=== PATIENT | female | born 1945 | race Caucasian/White ===

== ENCOUNTER 2017-04-25 14:05 | Inpatient (IN) | payer MEDICARE, MEDICAID, OTHER ==
[~2017-04-25] VITALS: Ht 160 cm; Wt 55.1 kg
[~2017-04-25 14:05] MED LIST: ALBUAER3 INH; CITA40TA4 PO; DEXT1TAB PO; HYDR-3583 PO; HYDR12.57 PO; LORA0.5T PO; OMEP20TA93 PO; REST30CA PO; THEO300T12 PO; TIZA2CAP3 PO; TRAZ100T4 PO
[2017-04-25] MEDS ORDERED: SODIUM CHLOR 0.9% 1000 ML INJ 1,000 ML IV SCH (14:19)
--- NOTE | 2017-04-25 14:24 | PD ---
HPI Chief Complaint: Psychiatric Symptoms Time Seen by Provider: 14:11 Travel History International Travel<30 days: No Contact w/Intl Traveler<30days: No History of Present Illness HPI 71-year-old female brought in by [facility] under the Diaz act for reported suicidal ideation. Patient is visibly intoxicated, and smells strongly of alcohol. Patient has history of asthma, chronic arthritis, and COPD. Patient is complaining of anxiety and nausea. Patient takes theophylline for her asthma. She states she may be due for a breathing treatment. She denies fever, chills, or other symptoms. She has no complaints of pain. She is allergic to ampicillin, doxycycline, minocycline, propoxyphene, and tigecycline. PFSH Past Medical History Asthma: Yes Bipolar Disorder: Yes Anxiety: Yes Depression: Yes Heart Rhythm Problems: No Cardiovascular Problems: No High Cholesterol: Yes Chest Pain: No Congestive Heart Failure: No COPD: No Cerebrovascular Accident: No Diabetes: No Diminished Hearing: No Gastrointestinal Disorders: Yes (CROHN'S) Genitourinary: No Headaches: No Hypertension: No Implanted Vascular Access Dvce: No Insomnia: Yes Musculoskeletal: Yes (DJD) Neurologic: No Psychiatric: Yes Reproductive: No Respiratory: No Immunizations Current: Yes Migraines: No Myocardial Infarction: No Sleep Apnea: No Menopausal: Yes : 3 Para: 3 Past Surgical History Abdominal Surgery: Yes Body Medical Devices: R LEG WITH TITANIUM ZAY Cardiac Surgery: No Endocrine Surgery: No Eye Surgery: No Genitourinary Surgery: No Joint Replacement: Yes (B/L HIP) Neurologic Surgery: No Oral Surgery: No Thoracic Surgery: No Tonsillectomy: Yes Other Surgery: Yes (r&l legs) Social History Alcohol Use: Yes Tobacco Use: Yes Substance Use: Yes (CHRONIC ALCOHOL ABUSE) Allergies-Medications (Allergen,Severity, Reaction): Coded Allergies: ampicillin (Unverified Allergy, Severe, 04/25/17) doxycycline (Unverified Allergy, Severe, UPSET STOMACH, 04/25/17) minocycline (Unverified Allergy, Severe, UPSET STOMACH, 04/25/17) propoxyphene (Unverified Allergy, Severe, Itching, 04/25/17) tigecycline (Unverified Allergy, Severe, UPSET STOMACH, 04/25/17) Reported Meds & Prescriptions Reported Meds & Active Scripts Active Reported Vistaril (Hydroxyzine Pamoate) 50 Mg Cap 50 Mg PO TID Potassium Chloride ER (Potassium Chloride) 20 Meq Tab 20 Meq PO DAILY Lasix (Furosemide) 20 Mg Tab 20 Mg PO DAILY Trazodone (Trazodone HCl) 100 Mg Tablet 100 Mg PO HS Lorazepam 0.5 Mg Tab 0.5 Mg PO Q4H PRN Hydrocodone-Acetaminophen 10-325 mg Tab 1 Tab PO Q8HR PRN Restoril (Temazepam) 30 Mg Cap 30 Mg PO HS PRN Proair Hfa 8.5 GM Inh (Albuterol Sulfate) 90 Mcg/Act Aer 2 Puff INH Q4-6H PRN 108 mcg/actuation Theophylline ER 12 HR (Theophylline) 300 Mg Tab 300 Mg PO BID Omeprazole 20 Mg Tab 20 Mg PO BID Citalopram (Citalopram Hydrobromide) 40 Mg Tab 40 Mg PO DAILY Review of Systems ROS Limitations: Intoxication Except as stated in HPI: all other systems reviewed are Neg General / Constitutional: No: Fever Eyes: No: Visual changes HENT: No: Headaches Cardiovascular: No: Chest Pain or Discomfort Respiratory: No: Shortness of Breath Gastrointestinal: No: Abdominal Pain Genitourinary: No: Dysuria Musculoskeletal: No: Pain Skin: No Rash Neurologic: No: Weakness Psychiatric: No: Depression Endocrine: No: Polydipsia Hematologic/Lymphatic: No: Easy Bruising Physical Exam Exam Limitations: Intoxication Narrative GENERAL: Patient visibly intoxicated and in no acute distress. SKIN: Warm and dry. Normal color. Normal turgor. No signs of trauma. HEAD: Atraumatic. Normocephalic. EYES: Pupils equal and round. No scleral icterus. No injection or drainage. ENT: No nasal bleeding or discharge. Mucous membranes pink and moist. NECK: Trachea midline. No JVD. CARDIOVASCULAR: Regular rate and rhythm. RESPIRATORY: No accessory muscle use. Diffuse wheezes to auscultation. No rhonchi or rales. Breath sounds equal bilaterally. GASTROINTESTINAL: Abdomen soft, non-tender, nondistended. Hepatic and splenic margins not palpable. MUSCULOSKELETAL: Extremities without clubbing, cyanosis, or edema. No obvious deformities. NEUROLOGICAL: Awake and alert. No obvious cranial nerve deficits. Motor grossly within normal limits. Five out of 5 muscle strength in the arms and legs. Normal speech. PSYCHIATRIC: Appropriate mood and affect; insight and judgment normal. Data Data Last Documented VS Vital Signs Date Time Temp Pulse Resp B/P (MAP) Pulse Ox O2 Delivery O2 Flow Rate FiO2 04/25/17 16:30 75 16 111/67 (82) 98 Room Air 04/25/17 14:38 98.8 Orders Orders Complete Blood Count With Diff (04/25/17 14:19) Comprehensive Metabolic Panel (04/25/17 14:19) Thyroid Stimulating Hormone (04/25/17 14:19) Urinalysis - C+S If Indicated (04/25/17 14:19) Cath For Specimen (04/25/17 14:19) Psych Screen (04/25/17 14:19) Drug Screen, Random Urine (04/25/17 14:19) Alcohol (Ethanol) (04/25/17 14:19) Iv Access Insert/Monitor (04/25/17 14:19) Ecg Monitoring (04/25/17 14:19) Oximetry (04/25/17 14:19) Ondansetron Inj (Zofran Inj) (04/25/17 14:30) Sodium Chlor 0.9% 1000 Ml Inj (Ns 1000 M (04/25/17 14:19) Thiamine Inj (Thiamine Inj) (04/25/17 14:30) Chest, Single Ap (04/25/17 14:33) Albuterol-Ipratropium Neb (Duoneb Neb) (04/25/17 14:45) Lorazepam Inj (Ativan Inj) (04/25/17 14:45) Azithromycin (Zithromax) (04/25/17 15:15) Ceftriaxone Inj (Rocephin Inj) (04/25/17 15:15) Prednisone (Deltasone) (04/25/17 15:30) Urine Culture (04/25/17 15:10) Potassium Chlor 20 Meq Premix (Kcl 20 Me (04/25/17 16:15) Potassium Chloride (Kcl) (04/25/17 16:15) Potassium Chlor 20 Meq Premix (Kcl 20 Me (04/25/17 16:45) Potassium Chloride (Kcl) (04/25/17 16:45) Lorazepam Inj (Ativan Inj) (04/25/17 18:30) Ondansetron Inj (Zofran Inj) (04/25/17 18:30) Admit Order (Ed Use Only) (04/25/17 18:33) Citalopram (Celexa) (04/26/17 09:00) Theophylline Er 12 Hr (Theochron) (04/25/17 21:00) (Nf) Trazodone (04/25/17 21:00) Labs Laboratory Tests Test 04/25/17 15:00 04/25/17 15:10 White Blood Count 6.4 TH/MM3 Red Blood Count 4.48 MIL/MM3 Hemoglobin 14.2 GM/DL Hematocrit 41.3 % Mean Corpuscular Volume 92.2 FL Mean Corpuscular Hemoglobin 31.7 PG Mean Corpuscular Hemoglobin Concent 34.4 % Red Cell Distribution Width 14.7 % Platelet Count 292 TH/MM3 Mean Platelet Volume 7.9 FL Neutrophils (%) (Auto) 68.4 % Lymphocytes (%) (Auto) 19.5 % Monocytes (%) (Auto) 10.0 % Eosinophils (%) (Auto) 0.9 % Basophils (%) (Auto) 1.2 % Neutrophils # (Auto) 4.4 TH/MM3 Lymphocytes # (Auto) 1.2 TH/MM3 Monocytes # (Auto) 0.6 TH/MM3 Eosinophils # (Auto) 0.1 TH/MM3 Basophils # (Auto) 0.1 TH/MM3 CBC Comment DIFF FINAL Differential Comment Blood Urea Nitrogen 8 MG/DL Creatinine 0.63 MG/DL Random Glucose 81 MG/DL Total Protein 6.7 GM/DL Albumin 3.9 GM/DL Calcium Level 8.6 MG/DL Alkaline Phosphatase 94 U/L Aspartate Amino Transf (AST/SGOT) 68 U/L Alanine Aminotransferase (ALT/SGPT) 52 U/L Total Bilirubin 0.6 MG/DL Sodium Level 136 MEQ/L Potassium Level 2.8 MEQ/L Chloride Level 96 MEQ/L Carbon Dioxide Level 29.5 MEQ/L Anion Gap 11 MEQ/L Estimat Glomerular Filtration Rate 94 ML/MIN Thyroid Stimulating Hormone 3rd Gen 0.482 uIU/ML Ethyl Alcohol Level 84 MG/DL Urine Color YELLOW Urine Turbidity HAZY Urine pH 7.0 Urine Specific [place] 1.007 Urine Protein NEG mg/dL Urine Glucose (UA) NEG mg/dL Urine Ketones NEG mg/dL Urine Occult Blood NEG Urine Nitrite POS Urine Bilirubin NEG Urine Urobilinogen LESS THAN 2.0 MG/DL Urine Leukocyte Esterase LARGE Urine RBC 1 /hpf Urine WBC 65 /hpf Urine WBC Clumps FEW Urine Transitional Epithelial Cells <1 /hpf Urine Bacteria FEW /hpf Microscopic Urinalysis Comment CATH-CULTURE IND Urine Opiates Screen NEG Urine Barbiturates Screen NEG Urine Amphetamines Screen NEG Urine Benzodiazepines Screen NEG Urine Cocaine Screen NEG Urine Cannabinoids Screen NEG MDM Medical Decision Making Medical Screen Exam Complete: Yes Emergency Medical Condition: Yes Medical Record Reviewed: Yes Differential Diagnosis Alcoholic intoxication. Suicidal ideation. Diaz act Narrative Course Patient appears medically stable at time of exam Labs ordered including CBC, CMP, urinalysis, urine drug screen, and serum alcohol. Chest x-ray is ordered. IV access is obtained the patient is given 4 mg Zofran IV as well as 100 mg thiamine IV, as well as 1000 mL of normal saline bolus. Patient is given 0.5 mg lorazepam IV, and DuoNeb 1. Chest x-ray suggests right lower lobe pneumonia. Patient is given 500 mg azithromycin p.o. as well as 1000 mg Rocephin IV. CBC is unremarkable. Urinalysis has positive nitrites, large leukocyte esterase, 65 WBCs per high- power field, a few white blood cell clumps per high-power field, and few bacteria per high-power field. Urine culture is placed. CMP significant with sodium 136, potassium 2.8, chloride is 96. BUN/creatinine are normal. TSH is normal. Patient is given 40 mEq KCl IV as well as 40 mEq KCl p.o. Urine toxicology is normal. With a full alcohol of 84. Calls placed to the hospitalist for admission. Patient was discussed with Dr. Alfaro, and due to the patient's illnesses being able to be treated with oral antibiotics and potassium supplementation, she felt she could be admitted to the psych medical floor if felt warranted by psych. Psych screen is ordered. Psych screen was performed by psychiatric nurse, and patient was discussed with the psychiatrist who felt the patient warranted inpatient admission. The patient will be admitted to the med psych floor, and followed by the hospitalist team for her medical issues. Diagnosis Primary Impression: Right lower lobe pneumonia Qualified Codes: J18.1 - Lobar pneumonia, unspecified organism Additional Impressions: UTI (urinary tract infection) Qualified Codes: N30.00 - Acute cystitis without hematuria Depression with suicidal ideation Admitting Information Admitting Physician Requests: Admit Condition: Stable Trav Karimi F. PA Apr 25, 2017 14:24
[2017-04-25] MEDS ORDERED: THIAMINE INJ 100 MG in SODIUM CHLORIDE 0.9% INJ 100 ML IV ONE (14:30)
[2017-04-25] MEDS ORDERED: ONDANSETRON HCL 4 MG/2 ML VIAL IVP ONE (14:30)
[2017-04-25 14:38] VITALS: BP 109/61; PULSE 82; RESP 16; TEMP 98.8; O2SAT 95
[2017-04-25] MEDS ORDERED: TRAZ100T10 PO (14:41)
[2017-04-25] MEDS ORDERED: RESP: ALBUTEROL 2.5 MG/IPRATROPIUM 0.5 MG NEB (SCH) INH ONE (14:45)
[2017-04-25] MEDS ORDERED: LORazepam 2 MG/ML VIAL IV PUSH ONE ×2 (14:45→18:30)
--- NOTE | 2017-04-25 15:04 | RADRPT ---
EXAM DATE/TIME: 04/25/2017 14:39 [place] COMPARISON: CHEST SINGLE AP, February 25, 2016, 14:58. INDICATIONS : Coughing, short of breath MEDICAL HISTORY : substance abuse, bi-polar disorder,asthma SURGICAL HISTORY : Tonsillectomy. multiple surgeries to hips and lower extremities ENCOUNTER: Initial ACUITY: 1 day PAIN SCORE: Non-responsive. LOCATION: Bilateral chest FINDINGS: A single view of the chest demonstrates consolidation in the right lower lobe. Left lung clear. Heart normal in size. Osseous structures are intact. Levoscoliosis lower thoracic spine. Erosion of right shoulder joint, unchanged. CONCLUSION: Right lower lobe pneumonia. Treatment and followup to resolution. Larry Watson MD on April 25, 2017 at 15:02 Board Certified Radiologist. This report was verified electronically.
[2017-04-25] MEDS ORDERED: FURO1TAB62 PO (15:07)
[2017-04-25] MEDS ORDERED: VIST50CA PO (15:07)
[2017-04-25] MEDS ORDERED: POTA-163 PO (15:07)
[2017-04-25] MEDS ORDERED: cefTRIAXone INJ 1,000 MG in SODIUM CHLORIDE 0.9% INJ 100 ML IV ONE (15:15)
[2017-04-25 15:30] LABS: AUTOMATED NEUTROPHIL # 4.4 TH/MM3 (1.8-7.7); BASOPHIL # 0.1 TH/MM3 (0-0.2); BASOPHIL % 1.2 % (0.0-2.0); EOSINOPHIL # 0.1 TH/MM3 (0-0.4); EOSINOPHIL % 0.9 % (0.0-4.0); HEMATOCRIT 41.3 % (35.0-46.0); HEMOGLOBIN 14.2 GM/DL (11.6-15.3); LYMPH % 19.5 % (9.0-44.0); LYMPHOCYTE # 1.2 TH/MM3 (1.0-4.8); MEAN CELL VOLUME 92.2 FL (80.0-100.0); MEAN CORPUSCULAR HEMOGLOBIN 31.7 PG (27.0-34.0); MEAN CORPUSCULAR HGB CONC 34.4 % (32.0-36.0); MEAN PLATELET VOLUME 7.9 FL (7.0-11.0); MONOCYTE # 0.6 TH/MM3 (0-0.9); NEUT % 68.4 % (16.0-70.0); PLATELET COUNT 292 TH/MM3 (150-450); RED BLOOD COUNT 4.48 MIL/MM3 (4.00-5.30); RED CELL DISTRIBUTION WIDTH 14.7 % (11.6-17.2); WHITE BLOOD COUNT 6.4 TH/MM3 (4.0-11.0)
[2017-04-25 15:49] LABS: BACTERIA, URINE FEW /hpf; BILIRUBIN, URINE NEG (NEG); BLOOD, URINE NEG (NEG); GLUCOSE,URINE NEG (NEG); KETONE, URINE NEG (NEG); NITRITE,URINE POS (NEG); TRANSITIONAL EPI CELLS, URINE <1 /hpf; URINE COLOR YELLOW (YELLW/STRAW); URINE LEUKOCYTE ESTERASE LARGE (NEG); WHITE BLOOD CELL CLUMPS FEW
[2017-04-25 15:59] LABS: ALBUMIN 3.9 GM/DL (3.4-5.0); ALKALINE PHOSPHATASE 94 U/L (45-117); ALT (GPT) 52 U/L (10-53); AST (GOT) 68 U/L (15-37); BICARBONATE 29.5 MEQ/L (21.0-32.0); BLOOD UREA NITROGEN 8 MG/DL (7-18); CALCIUM 8.6 MG/DL (8.5-10.1); CHLORIDE 96 MEQ/L (98-107); CREATININE 0.63 MG/DL (0.50-1.00); GLOMERULAR FILTRATION RATE 94 ML/MIN (>89); GLUCOSE,RANDOM 81 MG/DL (74-106); SODIUM (NA) 136 MEQ/L (136-145); TOTAL BILIRUBIN ADULT 0.6 MG/DL (0.2-1.0); TOTAL PROTEIN 6.7 GM/DL (6.4-8.2)
[2017-04-25] MEDS: predniSONE 20 MG TAB PO SCH (15:59)
[2017-04-25] MEDS: AZITHROMYCIN 250 MG TAB PO SCH (15:59)
[2017-04-25] MEDS ORDERED: POTASSIUM CHLORIDE 20 MEQ CONTROLLED RELEASE TAB PO ONE ×2 (16:15→16:45)
[2017-04-25] MEDS ORDERED: POTASSIUM CHLOR 20 MEQ PREMIX 100 ML IV ONE (16:15)
[2017-04-25 16:30] VITALS: BP 111/67; PULSE 75; RESP 16; O2SAT 98
[2017-04-25] MEDS ORDERED: ONDANSETRON HCL 4 MG/2 ML VIAL IV PUSH ONE (18:30)
[2017-04-25 18:43] VITALS: BP 102/55; PULSE 81; RESP 16; O2SAT 98
[2017-04-25] MEDS ORDERED: LORazepam 2 MG/ML VIAL IM PRN ×2 (18:45)
[2017-04-25] MEDS: POTASSIUM CHLOR 20 MEQ PREMIX 100 ML IV SCH ×2 (18:45→19:34)
[2017-04-25] MEDS ORDERED: MAGNESIUM HYDROXIDE SUSP 30 ML CUP PO PRN (18:45)
[2017-04-25] MEDS ORDERED: LORazepam 1 MG TAB PO PRN (18:45)
[2017-04-25] MEDS: traZODone HCL 100 MG TAB PO SCH (21:00)
[2017-04-25] MEDS: THEOPHYLLINE ER 12 HR 300 MG TABCR PO SCH (21:00)
[2017-04-25 21:47] VITALS: BP 102/59; PULSE 88; RESP 15; TEMP 99.4
[2017-04-25] MEDS: ACETAMINOPHEN 325 MG TAB PO PRN (21:50)
[2017-04-25] MEDS: LORazepam 0.5 MG TAB PO PRN (21:51)
[2017-04-26] MEDS: ACETAMINOPHEN 325 MG TAB PO PRN ×3 (04:37→19:00)
[2017-04-26 04:50] VITALS: BP 122/58; PULSE 87; RESP 20; TEMP 98.2
[2017-04-26] MEDS ORDERED: NICOTINE 21 MG/24 HR PATCH T-DERMAL SCH (09:00)
[2017-04-26 09:54] LABS: AUTOMATED NEUTROPHIL # 7.3 TH/MM3 (1.8-7.7); BASOPHIL # 0.1 TH/MM3 (0-0.2); BASOPHIL % 1.1 % (0.0-2.0); EOSINOPHIL % 0.3 % (0.0-4.0); HEMATOCRIT 40.8 % (35.0-46.0); HEMOGLOBIN 13.9 GM/DL (11.6-15.3); LYMPH % 11.6 % (9.0-44.0); MEAN CELL VOLUME 93.2 FL (80.0-100.0); MEAN CORPUSCULAR HEMOGLOBIN 31.8 PG (27.0-34.0); MEAN CORPUSCULAR HGB CONC 34.2 % (32.0-36.0); MEAN PLATELET VOLUME 7.5 FL (7.0-11.0); MONO % 6.2 % (0.0-8.0); MONOCYTE # 0.6 TH/MM3 (0-0.9); NEUT % 80.8 % (16.0-70.0); PLATELET COUNT 301 TH/MM3 (150-450); RED BLOOD COUNT 4.37 MIL/MM3 (4.00-5.30); WHITE BLOOD COUNT 9.1 TH/MM3 (4.0-11.0)
[2017-04-26] MEDS: predniSONE 20 MG TAB PO SCH (10:09)
[2017-04-26] MEDS: CITALOPRAM HYDROBROMIDE 40 MG TAB PO SCH ×2 (10:10→12:00)
[2017-04-26] MEDS: THEOPHYLLINE ER 12 HR 300 MG TABCR PO SCH ×2 (10:10→21:53)
[2017-04-26] MEDS: AZITHROMYCIN 250 MG TAB PO SCH (10:10)
[2017-04-26] MEDS: ALUMINUM/MAGNESIUM/SIMETH 30 ML CUP PO PRN ×2 (10:11→21:55)
[2017-04-26 10:21] LABS: ALBUMIN 3.5 GM/DL (3.4-5.0); AST (GOT) 41 U/L (15-37); BICARBONATE 30.8 MEQ/L (21.0-32.0); BLOOD UREA NITROGEN 10 MG/DL (7-18); CALCIUM 9.3 MG/DL (8.5-10.1); CHLORIDE 103 MEQ/L (98-107); CREATININE 0.78 MG/DL (0.50-1.00); GLOMERULAR FILTRATION RATE 73 ML/MIN (>89); GLUCOSE,RANDOM 127 MG/DL (74-106); MAGNESIUM 2.2 MG/DL (1.5-2.5); SODIUM (NA) 140 MEQ/L (136-145)
[2017-04-26 10:22] LABS: CHOLESTEROL 187 MG/DL (120-200)
[2017-04-26 10:27] LABS: ALKALINE PHOSPHATASE 93 U/L (45-117); ALT (GPT) 40 U/L (10-53); CHOLESTEROL/ HDL RATIO 1.64 RATIO; HDL CHOLESTEROL 113.7 MG/DL (40.0-60.0); LDL CHOLESTEROL 64 MG/DL (0-99); TOTAL BILIRUBIN ADULT 0.5 MG/DL (0.2-1.0); TOTAL PROTEIN 6.2 GM/DL (6.4-8.2); TRIGLYCERIDES 47 MG/DL (42-150)
[2017-04-26] MEDS: methylPREDNISolone SOD SUCC 125 MG/2 ML VIAL IV PUSH SCH ×2 (12:16→23:04)
[2017-04-26] MEDS: LEVOFLOXACIN 750 MG PREMIX INJ 150 ML IV SCH (12:17)
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
--- NOTE | 2017-04-26 14:03 | PD.CONS ---
[facility] Consult Requested By Reason for Consult Pneumonia, UTI, COPD Primary Care Physician Unknown Diagnoses: Review of Systems Constitutional: COMPLAINS OF: Fatigue, Fever, Chills, DENIES: Diaphoretic episodes, Weight gain, Weight loss Eyes: DENIES: Blurred vision, Diplopia, Eye inflammation, Eye pain, Vision loss , Photosensitivity Respiratory: COMPLAINS OF: Cough, Wheezing, Sputum production, Shortness of breath Cardiovascular: DENIES: Chest pain, Palpitations, Syncope Gastrointestinal: DENIES: Abdominal pain, Black stools, Bloody stools, Constipation, Diarrhea, Nausea, Vomiting Musculoskeletal: DENIES: Joint pain, Muscle aches, Stiffness, Joint Swelling Integumentary: DENIES: Abnormal pigmentation, Pruritus, Rash Neurologic: DENIES: Abnormal gait, Headache, Localized weakness Psychiatric: COMPLAINS OF: Anxiety, Depression, Suicidal Ideation, DENIES: Confusion, Hallucinations Past Family Social History Allergies: Coded Allergies: ampicillin (Unverified Allergy, Severe, 04/25/17) doxycycline (Unverified Allergy, Severe, UPSET STOMACH, 04/25/17) minocycline (Unverified Allergy, Severe, UPSET STOMACH, 04/25/17) propoxyphene (Unverified Allergy, Severe, Itching, 04/25/17) tigecycline (Unverified Allergy, Severe, UPSET STOMACH, 04/25/17) Past Medical History COPD CHF Osteoarthritis Depression Past Surgical History 2 right hip surgeries Left ankle repair Family History Cancer Type 2 diabetes Hypertension Social History Patient smokes less than one half pack of cigarettes per day Recent increase in alcohol use, up to 8 drinks daily Physical Exam Vital Signs Vital Signs Date Time Temp Pulse Resp B/P (MAP) Pulse Ox O2 Delivery O2 Flow Rate FiO2 04/26/17 04:50 98.2 87 20 122/58 (79) 04/25/17 21:47 99.4 88 15 102/59 (73) 04/25/17 21:16 04/25/17 18:43 81 16 102/55 (71) 98 Room Air 04/25/17 16:30 75 16 111/67 (82) 98 Room Air 04/25/17 14:38 98.8 82 16 109/61 (77) 95 Physical Exam GENERAL: This is a thin, weak, sad appearing patient, in no apparent distress. SKIN: No rashes, ecchymoses or lesions. Cool and dry. HEAD: Atraumatic. Normocephalic. No temporal or scalp tenderness. EYES: Pupils equal round and reactive. Extraocular motions intact. No scleral icterus. No injection or drainage. ENT: Nose without bleeding, purulent drainage or septal hematoma. Throat without erythema, tonsillar hypertrophy or exudate. Uvula midline. Airway patent. NECK: Trachea midline. No JVD or lymphadenopathy. Supple, nontender, no meningeal signs. CARDIOVASCULAR: Regular rate and rhythm without murmurs, gallops, or rubs. RESPIRATORY: Simba congestion and scattered wheezing throughout. Rhonchi present with large amount of congestion. (COPD exacerbation) GASTROINTESTINAL: Abdomen soft, non-tender, nondistended. No hepato-splenomegaly , or palpable masses. No guarding. MUSCULOSKELETAL: Extremities without clubbing, cyanosis, or edema. No joint tenderness, effusion, or edema noted. No calf tenderness. Negative Homans sign bilaterally. NEUROLOGICAL: Awake and alert. Cranial nerves II through XII intact. Motor and sensory grossly within normal limits. Five out of 5 muscle strength in all muscle groups. Normal speech. Laboratory Laboratory Tests Test 04/25/17 15:00 04/25/17 15:10 04/26/17 09:41 White Blood Count 6.4 9.1 Red Blood Count 4.48 4.37 Hemoglobin 14.2 13.9 Hematocrit 41.3 40.8 Mean Corpuscular Volume 92.2 93.2 Mean Corpuscular Hemoglobin 31.7 31.8 Mean Corpuscular Hemoglobin Concent 34.4 34.2 Red Cell Distribution Width 14.7 15.0 Platelet Count 292 301 Mean Platelet Volume 7.9 7.5 Neutrophils (%) (Auto) 68.4 80.8 Lymphocytes (%) (Auto) 19.5 11.6 Monocytes (%) (Auto) 10.0 6.2 Eosinophils (%) (Auto) 0.9 0.3 Basophils (%) (Auto) 1.2 1.1 Neutrophils # (Auto) 4.4 7.3 Lymphocytes # (Auto) 1.2 1.0 Monocytes # (Auto) 0.6 0.6 Eosinophils # (Auto) 0.1 0.0 Basophils # (Auto) 0.1 0.1 CBC Comment DIFF FINAL DIFF FINAL Differential Comment Blood Urea Nitrogen 8 10 Creatinine 0.63 0.78 Random Glucose 81 127 Total Protein 6.7 6.2 Albumin 3.9 3.5 Calcium Level 8.6 9.3 Alkaline Phosphatase 94 93 Aspartate Amino Transf (AST/SGOT) 68 41 Alanine Aminotransferase (ALT/SGPT) 52 40 Total Bilirubin 0.6 0.5 Sodium Level 136 140 Potassium Level 2.8 3.4 Chloride Level 96 103 Carbon Dioxide Level 29.5 30.8 Anion Gap 11 6 Estimat Glomerular Filtration Rate 94 73 Thyroid Stimulating Hormone 3rd Gen 0.482 Ethyl Alcohol Level 84 Urine Color YELLOW Urine Turbidity HAZY Urine pH 7.0 Urine Specific Willard 1.007 Urine Protein NEG Urine Glucose (UA) NEG Urine Ketones NEG Urine Occult Blood NEG Urine Nitrite POS Urine Bilirubin NEG Urine Urobilinogen LESS THAN 2.0 Urine Leukocyte Esterase LARGE Urine RBC 1 Urine WBC 65 Urine WBC Clumps FEW Urine Transitional Epithelial Cells <1 Urine Bacteria FEW Microscopic Urinalysis Comment CATH-CULTURE IND Urine Opiates Screen NEG Urine Barbiturates Screen NEG Urine Amphetamines Screen NEG Urine Benzodiazepines Screen NEG Urine Cocaine Screen NEG Urine Cannabinoids Screen NEG Magnesium Level 2.2 Hemoglobin A1c 5.0 Triglycerides Level 47 Cholesterol Level 187 LDL Cholesterol 64 HDL Cholesterol 113.7 Cholesterol/HDL Ratio 1.64 Date/Time Source Procedure Growth Status 04/25/17 15:10 Urine Catheterized Urine Urine Culture - Preliminary Gram Negative Aaron Resulted Result Diagram: 04/26/1794004/26/17940 Assessment and Plan Problem List: (1) Depression with suicidal ideation ICD Code: F32.9 - Major depressive disorder, single episode, unspecified; R45.851 - Suicidal ideations Status: Acute Assessment and Plan Depression with suicidal ideation Treatment per psychiatry Pneumonia with COPD exacerbation Patient states she has had good success with Levaquin on 6 previous treatments for pneumonia, all within 4 years IV Solu-Medrol 60 mg twice daily Schedule DuoNeb treatments Urinary tract infection Cross coverage with Levaquin h/o congestive heart failure No evidence of edema currently Will monitor DVT prophylaxis Andres Mosquera MD Apr 26, 2017 14:03
[2017-04-26] MEDS: traMADol HCL 50 MG TAB PO PRN ×2 (14:26→21:52)
[2017-04-26] MEDS: ENOXAPARIN SODIUM 40 MG/0.4 ML SYRINGE SQ SCH (14:26)
[2017-04-26] MEDS: hydrOXYzine HCL 25 MG TAB PO PRN ×2 (14:26→21:51)
[2017-04-26] MEDS: NICOTINE 7 MG/24 HR PATCH T-DERMAL SCH (14:34)
[2017-04-26] MEDS ORDERED: FLUMAZENIL 0.5 MG/5 ML VIAL IV PUSH PRN (16:00)
[2017-04-26] MEDS ORDERED: LORazepam 2 MG/ML VIAL IV PUSH PRN ×4 (16:00)
[2017-04-26] MEDS ORDERED: LORazepam 2 MG TAB PO PRN (16:00)
[2017-04-26] MEDS: LORazepam 1 MG TAB PO PRN (16:08)
[2017-04-26 18:00] VITALS: BP 109/59; PULSE 69; RESP 18; TEMP 98.5; O2SAT 97
[2017-04-26] MEDS: RESP: ALBUTEROL 2.5 MG/IPRATROPIUM 0.5 MG NEB (SCH) NEB (20:00)
[2017-04-26] MEDS ORDERED: REMOVE OLD PATCH T-DERMAL SCH (21:00)
[2017-04-26] MEDS ORDERED: REMOVE OLD NICODERM (NICOTINE) PATCH T-DERMAL SCH (21:00)
[2017-04-26] MEDS: traZODone HCL 100 MG TAB PO SCH (21:51)
[2017-04-27] MEDS: ACETAMINOPHEN 325 MG TAB PO PRN (01:39)
[2017-04-27] MEDS: ALUMINUM/MAGNESIUM/SIMETH 30 ML CUP PO PRN (05:44)
[2017-04-27] MEDS: traMADol HCL 50 MG TAB PO PRN (05:44)
[2017-04-27 06:00] VITALS: BP 124/76; PULSE 66; RESP 16; TEMP 98.8; O2SAT 94
[2017-04-27 07:38] VITALS: O2SAT 99
[2017-04-27] MEDS: RESP: ALBUTEROL 2.5 MG/IPRATROPIUM 0.5 MG NEB (SCH) NEB ×3 (07:38→20:00)
[2017-04-27] MEDS: THEOPHYLLINE ER 12 HR 300 MG TABCR PO SCH ×2 (08:57→21:20)
[2017-04-27] MEDS: CITALOPRAM HYDROBROMIDE 40 MG TAB PO SCH (08:58)
[2017-04-27] MEDS: methylPREDNISolone SOD SUCC 125 MG/2 ML VIAL IV PUSH SCH (08:59)
[2017-04-27] MEDS: predniSONE 20 MG TAB PO SCH (09:00)
[2017-04-27] MEDS: NICOTINE 7 MG/24 HR PATCH T-DERMAL SCH (09:07)
[2017-04-27] MEDS: IBUPROFEN 400 MG TAB PO SCH ×2 (10:00→17:55)
[2017-04-27] MEDS: LEVOFLOXACIN 750 MG PREMIX INJ 150 ML IV SCH (10:00)
[2017-04-27] MEDS: ACETAMINOPHEN/HYDROcodone 325 MG/5 MG TAB PO PRN ×2 (10:18→21:20)
--- NOTE | 2017-04-27 10:46 | HHI.PR ---
Subjective Remarks Patient states she feels a lot better and is breathing easier. Less coughing. She had some mild nausea and requested Zofran. She states that her pain is not quite controlled on tramadol and requests Lortab instead. Her pain is mostly pleuritic on the left side. Objective Vitals Vital Signs Date Time Temp Pulse Resp B/P (MAP) Pulse Ox O2 Delivery O2 Flow Rate FiO2 04/27/17 07:38 99 Nasal Cannula 2.00 04/27/17 06:00 98.8 66 16 124/76 (92) 94 04/26/17 22:26 21 04/26/17 18:00 98.5 69 18 109/59 (76) 97 I/O 04/26/17 04/26/17 04/26/17 04/27/17 04/27/17 04/27/17 07:00 15:00 23:00 07:00 15:00 23:00 Intake Total 600 ml 1200 ml 1080 ml 240 ml 240 ml Balance 600 ml 1200 ml 1080 ml 240 ml 240 ml Intake Oral 600 ml 1200 ml 1080 ml 240 ml 240 ml # Voids 2 1 1 # Bowel Movements 1 Result Diagram: 04/26/17 0941 04/26/17 0941 Objective Remarks GENERAL: Thin, weak appearing SKIN: Warm and dry. HEAD: Normocephalic. EYES: No scleral icterus. No injection or drainage. NECK: Supple, trachea midline. No JVD or lymphadenopathy. CARDIOVASCULAR: Regular rate and rhythm without murmurs, gallops, or rubs. RESPIRATORY: Crackles evident in the right base, congestion from yesterday 90% resolved, no more wheezing GASTROINTESTINAL: Abdomen soft, non-tender, nondistended. EXTREMITIES: No cyanosis, or edema. NEUROLOGICAL: Awake, alert, and oriented x 3. Non-focal. A/P Problem List: (1) Depression with suicidal ideation ICD Code: F32.9 - Major depressive disorder, single episode, unspecified; R45.851 - Suicidal ideations Status: Acute (2) UTI (urinary tract infection) ICD Code: N39.0 - Urinary tract infection, site not specified Status: Acute (3) Right lower lobe pneumonia ICD Code: J18.1 - Lobar pneumonia, unspecified organism Status: Acute Assessment and Plan Depression with suicidal ideation Treatment per psychiatry Pneumonia with COPD exacerbation Patient states she has had 6 episodes of pneumonia within 4 years Continue IV Solu-Medrol 60 mg twice daily Continue schedule DuoNeb treatments Continue IV Levaquin Lortab and Motrin for pleuritic pain Urinary tract infection Cross coverage with Levaquin Follow-up culture results h/o congestive heart failure No evidence of edema currently Will monitor DVT prophylaxis Lovenox Problem Qualifiers (1) UTI (urinary tract infection): Qualified Codes: N30.00 - Acute cystitis without hematuria (2) Right lower lobe pneumonia: Qualified Codes: J18.1 - Lobar pneumonia, unspecified organism Andres Jules MD Apr 27, 2017 10:46
[2017-04-27] MEDS: LORazepam 1 MG TAB PO PRN (13:45)
[2017-04-27] MEDS: ENOXAPARIN SODIUM 40 MG/0.4 ML SYRINGE SQ SCH (14:38)
--- NOTE | 2017-04-27 14:54 | HHI.PYPN ---
Subjective Remarks Patient is here for follow, chart reviewed. Patient found lying in hospital bed , cooperative. Patient states that he is feeling somewhat better although continued to report feeling depressed along with continue suicide ideations. Patient states that trazodone helped continues to have poor sleep. Patient denies any perceptual disturbances but is having some diarrhea and nausea that may be due to withdrawal from recent alcohol use. Patient also mentions that she had been seen by hospitalist and was told that she has "fluid in my lung". Review of Systems Except as stated in HPI: all other systems reviewed are Neg Mental Status Examination Appearance: Dirty, Disheveled Consciousness: Alert Orientation: Person, Place, Date/Time Speech: Unremarkable Language: Adequate Fund of Knowledge: Inadequate Attention and Concentration: Adequate Memory: Unremarkable Mood: Sad, Anxious Affect: Sad, Anxious Thought Process & Associations: Intact, Linear Thought Content: Appropriate Hallucination Type: None Delusion Type: None Suicidal Ideation: Yes Suicidal Plan: No Suicidal Intention: No Homicidal Ideation: No Homicidal Plan: No Homicidal Intention: No Insight: Fair Judgment: Impulsive Results Labs Date/Time Source Procedure Growth Status 04/25/17 15:10 Urine Catheterized Urine Urine Culture - Preliminary Escherichia Coli Multi-Drug Resistant Resulted Vitals/IOs Vital Signs Date Time Temp Pulse Resp B/P (MAP) Pulse Ox O2 Delivery O2 Flow Rate FiO2 04/27/17 07:38 99 Nasal Cannula 2.00 04/27/17 06:00 98.8 66 16 124/76 (92) 04/26/17 22:26 21 Intake and Output 04/27/17 04/27/17 04/28/17 08:00 16:00 00:00 Intake Total 240 ml 720 ml Balance 240 ml 720 ml Assessment & Plan Problem List: (1) Adjustment disorder with depressed mood ICD Codes: F43.21 - Adjustment disorder with depressed mood (2) Alcohol use disorder ICD Codes: F10.99 - Alcohol use, unspecified with unspecified alcohol-induced disorder Assessment & Plan Patient at this time continues to report feeling depressed although states feelings physically less anxious continues to have intermittent suicidal ideations. Patient to continue CIWA protocol as patient likely having symptoms of withdrawal. Continue to monitor mood and behavior. Continue current treatment this patient was recently restarted on medications. Discharge planning in progress Justification for Cont. Inpt. At risk for further decompensation if at lower level of care Discharge Planning To be determined Larry Ramos MD Apr 27, 2017 14:54
[2017-04-27 18:46] VITALS: BP 117/56; PULSE 67; RESP 16; TEMP 98.3
[2017-04-27] MEDS: traZODone HCL 100 MG TAB PO SCH (21:20)
[2017-04-27] MEDS: LORazepam 0.5 MG TAB PO PRN (21:20)
[2017-04-27] MEDS: hydrOXYzine HCL 25 MG TAB PO PRN (21:20)
[2017-04-27 22:15] VITALS: O2SAT 95
[2017-04-28] MEDS: IBUPROFEN 400 MG TAB PO SCH ×3 (03:18→17:32)
[2017-04-28] MEDS: hydrOXYzine HCL 25 MG TAB PO PRN ×4 (03:18→20:41)
[2017-04-28] MEDS: ACETAMINOPHEN/HYDROcodone 325 MG/5 MG TAB PO PRN ×5 (03:18→23:30)
[2017-04-28 06:17] VITALS: BP 128/73; PULSE 63; RESP 16; TEMP 98; O2SAT 99
[2017-04-28] MEDS: ONDANSETRON HCL 4 MG/2 ML VIAL IV PUSH PRN (06:39)
--- NOTE | 2017-04-28 08:14 | HHI.PYPN ---
Subjective Remarks Patient seen for follow, chart reviewed. Patient found lying hospital bed noted , cooperative. Patient states that she still continues to feel anxious with episodes of panic when thinking about returning back to being homeless. Patient states that she had been feeling "suicidal again" related to her psychosocial circumstances. Patient aware that treatment team is actively looking for safe disposition but is aware the patient will also require rehabilitation program for alcohol use which she is in agreement with. Patient continues to report feeling depressed, helpless and was continued suicidal ideations. Review of Systems Except as stated in HPI: all other systems reviewed are Neg Mental Status Examination Appearance: Dirty, Disheveled Consciousness: Alert Orientation: Person, Place, Date/Time Speech: Unremarkable Language: Adequate Fund of Knowledge: Inadequate Attention and Concentration: Adequate Memory: Unremarkable Mood: Sad, Anxious Affect: Sad, Anxious Thought Process & Associations: Intact, Linear Thought Content: Preoccupations (With her living situation) Hallucination Type: None Delusion Type: Paranoid Suicidal Ideation: Yes Suicidal Plan: No Suicidal Intention: No Homicidal Ideation: No Homicidal Plan: No Homicidal Intention: No Insight: Fair Judgment: Impulsive Results Labs Date/Time Source Procedure Growth Status 04/25/17 15:10 Urine Catheterized Urine Urine Culture - Final Escherichia Coli Multi-Drug Resistant Complete Vitals/IOs Vital Signs Date Time Temp Pulse Resp B/P (MAP) Pulse Ox O2 Delivery O2 Flow Rate FiO2 04/28/17 06:17 98.0 63 16 128/73 (91) 99 04/27/17 22:15 Nasal Cannula 2.00 04/26/17 22:26 21 Intake and Output 04/28/17 04/28/17 04/29/17 08:00 16:00 00:00 Intake Total 0 ml Balance 0 ml Assessment & Plan Problem List: (1) Adjustment disorder with depressed mood ICD Codes: F43.21 - Adjustment disorder with depressed mood (2) Alcohol use disorder ICD Codes: F10.99 - Alcohol use, unspecified with unspecified alcohol-induced disorder Assessment & Plan Patient this time continues to endorse feeling depressed along with episodes of anxiety and continued suicidal ideations. Patient continues to score on the CIWA requiring Ativan for current withdrawal symptoms. Patient's anxiety also may be related to her current withdrawal. We will continue with current treatment. Continue to monitor for withdrawal, continue CIWA protocol. Continue recommendations as per prior medical team. Discharge planning in progress. Justification for Cont. Inpt. At risk of further decompensation at lower level of care. Larry Ramos MD Apr 28, 2017 08:13
[2017-04-28] MEDS: RESP: ALBUTEROL 2.5 MG/IPRATROPIUM 0.5 MG NEB (SCH) NEB ×2 (08:24→14:18)
[2017-04-28] MEDS: predniSONE 50 MG TAB PO SCH (09:42)
[2017-04-28] MEDS: NICOTINE 7 MG/24 HR PATCH T-DERMAL SCH (09:43)
[2017-04-28] MEDS: THEOPHYLLINE ER 12 HR 300 MG TABCR PO SCH ×2 (09:43→20:41)
[2017-04-28] MEDS: CITALOPRAM HYDROBROMIDE 40 MG TAB PO SCH (09:43)
[2017-04-28] MEDS ORDERED: methylPREDNISolone SOD SUCC 40 MG/1 ML VIAL IV PUSH ONE (12:00)
[2017-04-28] MEDS: BUDESONIDE-FORMOTEROL 160/4.5 MCG INHALER INH SCH ×2 (13:14→20:41)
[2017-04-28] MEDS: LEVOFLOXACIN 750 MG PREMIX INJ 150 ML IV SCH (13:23)
--- NOTE | 2017-04-28 13:26 | HHI.PR ---
Subjective Remarks Patient was switched from IV Solu-Medrol to p.o. prednisone yesterday. She had some slight worsening of her shortness of breath. Denies any fevers. Objective Vitals Vital Signs Date Time Temp Pulse Resp B/P (MAP) Pulse Ox O2 Delivery O2 Flow Rate FiO2 04/28/17 08:24 Nasal Cannula 2.00 04/28/17 06:17 98.0 63 16 128/73 (91) 99 04/27/17 22:15 95 Nasal Cannula 2.00 04/27/17 20:00 Nasal Cannula 2.00 04/27/17 18:46 98.3 67 16 117/56 (76) I/O 04/27/17 04/27/17 04/27/17 04/28/17 04/28/17 04/28/17 07:00 15:00 23:00 07:00 15:00 23:00 Intake Total 240 ml 720 ml 1680 ml 0 ml 1080 ml Balance 240 ml 720 ml 1680 ml 0 ml 1080 ml Intake Oral 240 ml 720 ml 1680 ml 0 ml 1080 ml # Voids 1 1 1 Result Diagram: 04/26/17 0941 04/26/17 0941 Objective Remarks GENERAL: Thin, weak appearing SKIN: Warm and dry. HEAD: Normocephalic. EYES: No scleral icterus. No injection or drainage. NECK: Supple, trachea midline. No JVD or lymphadenopathy. CARDIOVASCULAR: Regular rate and rhythm without murmurs, gallops, or rubs. RESPIRATORY: Crackles evident in the right base, scattered wheezing, otherwise clear GASTROINTESTINAL: Abdomen soft, non-tender, nondistended. EXTREMITIES: No cyanosis, or edema. NEUROLOGICAL: Awake, alert, and oriented x 3. Non-focal. A/P Problem List: (1) Depression with suicidal ideation ICD Code: F32.9 - Major depressive disorder, single episode, unspecified; R45.851 - Suicidal ideations Status: Acute (2) UTI (urinary tract infection) ICD Code: N39.0 - Urinary tract infection, site not specified Status: Acute (3) Right lower lobe pneumonia ICD Code: J18.1 - Lobar pneumonia, unspecified organism Status: Acute Assessment and Plan Depression with suicidal ideation Treatment per psychiatry Pneumonia with COPD exacerbation Patient states she has had 6 episodes of pneumonia within 4 years Continue prednisone 50 mg daily, single extra dose of Solu-Medrol 60 mg IV today Continue schedule DuoNeb treatments Continue IV Levaquin Lortab and Motrin for pleuritic pain Urinary tract infection Cultures revealed multidrug resistant E. coli, including resistance to ciprofloxacin We will start a second antibiotic, Bactrim DS h/o congestive heart failure No evidence of edema currently Will monitor DVT prophylaxis Lovenox Problem Qualifiers (1) UTI (urinary tract infection): Qualified Codes: N30.00 - Acute cystitis without hematuria (2) Right lower lobe pneumonia: Qualified Codes: J18.1 - Lobar pneumonia, unspecified organism Andres Jules MD Apr 28, 2017 13:26
[2017-04-28] MEDS: SULFAMETHOXAZOLE-TRIMETHOPRIM DS 800-160 MG TAB PO SCH ×2 (15:59→20:41)
[2017-04-28] MEDS: ENOXAPARIN SODIUM 40 MG/0.4 ML SYRINGE SQ SCH (16:03)
[2017-04-28] MEDS: ALUMINUM/MAGNESIUM/SIMETH 30 ML CUP PO PRN (17:31)
[2017-04-28 18:07] VITALS: BP 129/61; PULSE 67; RESP 16; TEMP 98.5; O2SAT 95
[2017-04-28] MEDS: traZODone HCL 100 MG TAB PO SCH (20:41)
[2017-04-29] MEDS: IBUPROFEN 400 MG TAB PO SCH ×3 (02:00→18:00)
[2017-04-29] MEDS: ALUMINUM/MAGNESIUM/SIMETH 30 ML CUP PO PRN (03:25)
[2017-04-29] MEDS: hydrOXYzine HCL 25 MG TAB PO PRN ×4 (03:26→21:30)
[2017-04-29] MEDS: ACETAMINOPHEN/HYDROcodone 325 MG/5 MG TAB PO PRN ×5 (04:15→21:30)
[2017-04-29 05:56] VITALS: BP 141/64; PULSE 84; RESP 18; TEMP 98.4; O2SAT 97
[2017-04-29] MEDS: ONDANSETRON HCL 4 MG/2 ML VIAL IV PUSH PRN (06:51)
[2017-04-29] MEDS: CITALOPRAM HYDROBROMIDE 40 MG TAB PO SCH (08:33)
[2017-04-29] MEDS: THEOPHYLLINE ER 12 HR 300 MG TABCR PO SCH ×2 (08:34→21:00)
[2017-04-29] MEDS: predniSONE 50 MG TAB PO SCH (08:34)
[2017-04-29] MEDS: SULFAMETHOXAZOLE-TRIMETHOPRIM DS 800-160 MG TAB PO SCH ×2 (08:34→21:00)
[2017-04-29] MEDS: NICOTINE 7 MG/24 HR PATCH T-DERMAL SCH (08:35)
[2017-04-29] MEDS: BUDESONIDE-FORMOTEROL 160/4.5 MCG INHALER INH SCH ×2 (08:35→21:00)
[2017-04-29] MEDS: RESP: ALBUTEROL 2.5 MG/IPRATROPIUM 0.5 MG NEB (SCH) NEB ×3 (08:55→20:00)
[2017-04-29] MEDS: LEVOFLOXACIN 750 MG PREMIX INJ 150 ML IV SCH (09:58)
--- NOTE | 2017-04-29 15:13 | HHI.PYPN ---
Subjective Remarks On psychiatric evaluation today patient is found in her bed, she is calm, cooperative. Patient is seen along with nursing charge Therese. The patient reports to continued to be depressed, she says that her mood has just improve a little bit since she is here, she feels like she is responding slowly to medication, but still depressed. She has on and off suicidal thoughts, but no intention. The patient does request an increase in medication for anxiety and pain. As per nurse, the patient has been needy, at times drug seeking. She is oriented 3, no agitation, no aggressive behavior reported. Mental Status Examination Appearance: Dirty, Disheveled Consciousness: Alert Orientation: Person, Place, Date/Time Speech: Unremarkable Language: Adequate Fund of Knowledge: Inadequate Attention and Concentration: Adequate Memory: Unremarkable Mood: Sad, Anxious Affect: Sad, Anxious Thought Process & Associations: Intact, Linear Thought Content: Preoccupations (With her living situation) Hallucination Type: None Delusion Type: Paranoid Suicidal Ideation: Yes Suicidal Plan: No Suicidal Intention: No Homicidal Ideation: No Homicidal Plan: No Homicidal Intention: No Insight: Fair Judgment: Impulsive Results Labs Date/Time Source Procedure Growth Status 04/25/17 15:10 Urine Catheterized Urine Urine Culture - Final Escherichia Coli Multi-Drug Resistant Complete Vitals/IOs Vital Signs Date Time Temp Pulse Resp B/P (MAP) Pulse Ox O2 Delivery O2 Flow Rate FiO2 04/29/17 13:13 18 04/29/17 08:45 Room Air 04/29/17 05:56 98.4 84 141/64 (89) 97 04/28/17 20:00 2.00 04/26/17 22:26 21 Intake and Output 04/29/17 04/29/17 04/30/17 08:00 16:00 00:00 Intake Total 240 ml 360 ml Balance 240 ml 360 ml Assessment & Plan Problem List: (1) Adjustment disorder with depressed mood ICD Codes: F43.21 - Adjustment disorder with depressed mood (2) Alcohol use disorder ICD Codes: F10.99 - Alcohol use, unspecified with unspecified alcohol-induced disorder Assessment & Plan Estimated LOS: days Justification for Cont. Inpt. Patient has an elevated risk to decompensate at a lower level of care. Christopher Salazar MD Apr 29, 2017 15:13
[2017-04-29] MEDS: ENOXAPARIN SODIUM 40 MG/0.4 ML SYRINGE SQ SCH (15:26)
--- NOTE | 2017-04-29 15:59 | HHI.PR ---
Subjective Remarks Pt seen and examined. AFVSS. No acute events overnight. Endorses some persistent left sided chest pain when she takes deep breaths. Otherwise she states breathing seems to be be at baseline and coughing less. Shortness of breath improving though she states it flares up when she feels anxious. Feels the steroids make her anxiety worse. Tolerating PO without N/V. Objective Vital Signs Date Time Temp Pulse Resp B/P (MAP) Pulse Ox O2 Delivery O2 Flow Rate FiO2 04/29/17 13:13 18 04/29/17 10:41 18 04/29/17 08:45 Room Air 04/29/17 05:56 98.4 84 18 141/64 (89) 97 04/28/17 20:00 Nasal Cannula 2.00 04/28/17 18:07 98.5 67 16 129/61 (83) 95 I/O 04/28/17 04/28/17 04/28/17 04/29/17 04/29/17 04/29/17 07:00 15:00 23:00 07:00 15:00 23:00 Intake Total 0 ml 1080 ml 3120 ml 0 ml 600 ml Balance 0 ml 1080 ml 3120 ml 0 ml 600 ml Intake Oral 0 ml 1080 ml 3120 ml 0 ml 600 ml # Voids 1 1 2 Result Diagram: 04/26/1741 04/26/17 0941 Objective Remarks GENERAL: Elderly female laying comfortably in bed in [facility]. SKIN: Warm and dry. HEENT: Pupils equal and round. MMM. NECK: Supple no tender LAD or JVD. HEART: RRR no m/r/g. LUNGS: Scattered expiratory wheezing otherwise no appreciable crackles. ABDOMEN: Soft, NT, ND. EXTREMITIES: No LE edema or calf tenderness. NEURO: Awake and alert. PSYCH: Appropriate mood and affect. 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 Depression with suicidal ideation Treatment per psychiatry Pneumonia with COPD exacerbation Patient states she has had 6 episodes of pneumonia within 4 years Continue prednisone 50 mg daily Continue schedule DuoNeb treatments Change IV Levaquin to PO and treat for total of 7 days (started 04/26) Lortab and Motrin PRN for pleuritic pain Repeat CXR tomorrow to assess resolution Wean O2 to maintain sats >92% Urinary tract infection Cultures revealed multidrug resistant E. coli, including resistance to ciprofloxacin Started on Bactrim DS (04/28) h/o CHF Euvolemic Monitor DVT prophylaxis Lovenox Discharge Planning Per psych Problem Qualifiers (1) Right lower lobe pneumonia: Qualified Codes: J18.1 - Lobar pneumonia, unspecified organism (2) UTI (urinary tract infection): Qualified Codes: N30.00 - Acute cystitis without hematuria Estelle Snow MD Apr 29, 2017 15:59
[2017-04-29] MEDS: traZODone HCL 100 MG TAB PO SCH (21:00)
[2017-04-29 21:39] VITALS: O2SAT 97
[2017-04-30] MEDS: ACETAMINOPHEN/HYDROcodone 325 MG/5 MG TAB PO PRN ×4 (01:14→21:47)
[2017-04-30] MEDS: IBUPROFEN 400 MG TAB PO SCH ×3 (02:00→17:09)
[2017-04-30] MEDS: hydrOXYzine HCL 25 MG TAB PO PRN ×5 (03:15→23:30)
[2017-04-30 06:05] VITALS: BP 102/68; PULSE 63; RESP 18; TEMP 98.2; O2SAT 96
--- NOTE | 2017-04-30 08:32 | RADRPT ---
EXAM DATE/TIME: 04/30/2017 08:21 [place] COMPARISON: No previous studies available for comparison. INDICATIONS : Shortness of breath. MEDICAL HISTORY : Substance abuse, bi-polar disorder,asthma. SURGICAL HISTORY : Tonsillectomy. multiple surgeries to hips and lower extremities ENCOUNTER: Subsequent ACUITY: 1 week PAIN SCORE: 0/10 LOCATION: Bilateral chest FINDINGS: Colon and small bowel are present in the large right appeared eventration of the diaphragm. Lungs ar e clear. Heart and vascularity are normal. Extensive degenerative changes are present about the rig ht shoulder. CONCLUSION: Negative for acute process. There is no significant failure. Zachary Mcghee MD FACR on April 30, 2017 at 8:30 Board Certified Radiologist. This report was verified electronically.
[2017-04-30] MEDS: LEVOFLOXACIN 750 MG TAB PO SCH (09:00)
[2017-04-30] MEDS: THEOPHYLLINE ER 12 HR 300 MG TABCR PO SCH ×2 (09:00→21:47)
[2017-04-30] MEDS: BUDESONIDE-FORMOTEROL 160/4.5 MCG INHALER INH SCH ×2 (09:00→21:48)
[2017-04-30] MEDS: CITALOPRAM HYDROBROMIDE 40 MG TAB PO SCH (09:00)
[2017-04-30] MEDS: predniSONE 50 MG TAB PO SCH (09:00)
[2017-04-30] MEDS: NICOTINE 7 MG/24 HR PATCH T-DERMAL SCH (09:00)
[2017-04-30] MEDS: SULFAMETHOXAZOLE-TRIMETHOPRIM DS 800-160 MG TAB PO SCH ×2 (09:00→21:51)
[2017-04-30] MEDS: RESP: ALBUTEROL 2.5 MG/IPRATROPIUM 0.5 MG NEB (SCH) NEB (09:30)
--- NOTE | 2017-04-30 09:56 | HHI.PYPN ---
Subjective Remarks The patient is seen today for psychiatric reevaluation, patient reports feeling a little bit better, still depressed, patient continues to endorse suicidal ideation, very focused in medication for pain and withdrawal of alcohol, even though I do note any objective alcohol withdrawal symptoms. The patient has been reportedly activity asking for narcotics. Vital signs are stable. The patient is oriented 3, no fluctuation of consciousness or attention deficit present. Mental Status Examination Appearance: Dirty, Disheveled Consciousness: Alert Orientation: Person, Place, Date/Time Speech: Unremarkable Language: Adequate Fund of Knowledge: Inadequate Attention and Concentration: Adequate Memory: Unremarkable Mood: Sad, Anxious Affect: Sad, Anxious Thought Process & Associations: Intact, Linear Thought Content: Preoccupations (With her living situation) Hallucination Type: None Delusion Type: Paranoid Suicidal Ideation: Yes Suicidal Plan: No Suicidal Intention: No Homicidal Ideation: No Homicidal Plan: No Homicidal Intention: No Insight: Fair Judgment: Impulsive Results Labs Date/Time Source Procedure Growth Status 04/25/17 15:10 Urine Catheterized Urine Urine Culture - Final Escherichia Coli Multi-Drug Resistant Complete Vitals/IOs Vital Signs Date Time Temp Pulse Resp B/P (MAP) Pulse Ox O2 Delivery O2 Flow Rate FiO2 04/30/17 09:31 Nasal Cannula 2.00 04/30/17 06:12 18 04/30/17 06:05 98.2 63 102/68 (79) 96 04/26/17 22:26 21 Intake and Output 04/30/17 04/30/17 05/01/17 08:00 16:00 00:00 Intake Total 240 ml Balance 240 ml Assessment & Plan Problem List: (1) Adjustment disorder with depressed mood ICD Codes: F43.21 - Adjustment disorder with depressed mood (2) Alcohol use disorder ICD Codes: F10.99 - Alcohol use, unspecified with unspecified alcohol-induced disorder Assessment & Plan: We will start patient in Ativan 1 mg 3 times a day for withdrawal symptoms, with intentions to decreased by 25% daily as the patient can tolerate. Brief supportive psychotherapy provided. Assessment & Plan Estimated LOS: days Justification for Cont. Inpt. Patient has depression and SI. Christopher Salazar MD Apr 30, 2017 09:56
[2017-04-30] MEDS: LORazepam 1 MG TAB PO SCH ×2 (10:00→18:00)
--- NOTE | 2017-04-30 10:59 | HHI.PR ---
Subjective Remarks Pt seen and examined. AFVSS. No acute events overnight. Denies CP and states breathing has improved. Still with productive cough. Tolerating PO without nausea or vomiting. Endorses a mild amount of abdominal discomfort which she attributes to constipation and states she hasn't had a BM in days. Objective Vital Signs Date Time Temp Pulse Resp B/P (MAP) Pulse Ox O2 Delivery O2 Flow Rate FiO2 04/30/17 09:31 Nasal Cannula 2.00 04/30/17 06:12 18 04/30/17 06:05 98.2 63 18 102/68 (79) 96 04/30/17 03:00 20 04/29/17 21:39 97 Nasal Cannula 2.00 04/29/17 20:00 Room Air I/O 04/29/17 04/29/17 04/29/17 04/30/17 04/30/17 04/30/17 07:00 15:00 23:00 07:00 15:00 23:00 Intake Total 0 ml 600 ml 1260 ml 240 ml Balance 0 ml 600 ml 1260 ml 240 ml Intake Oral 0 ml 600 ml 1260 ml 240 ml # Voids 2 3 3 # Bowel Movements 0 0 Result Diagram: 04/26/17 0941 04/26/17 0941 Other Results Chest X-Ray 04/30/17 0800 Signed Impressions: Service Date/Time: Sunday, April 30, 2017 08:21 - CONCLUSION: Negative for acute process. There is no significant failure. Zachary Mcghee MD FACR Objective Remarks GENERAL: Elderly female laying comfortably in bed in [facility]. SKIN: Warm and dry. HEENT: Pupils equal and round. MMM. NECK: Supple no tender LAD or JVD. HEART: RRR no m/r/g. LUNGS: CTAB without wheezes or crackles. ABDOMEN: Soft, NT, ND. EXTREMITIES: No LE edema or calf tenderness. NEURO: Awake and alert. PSYCH: Appropriate mood and affect. 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 Depression with suicidal ideation Treatment per psychiatry Pneumonia with COPD exacerbation Clinically improved with clear lungs and no wheezing or crackles Repeat CXR with small bowel and colon in eventration of R diaphragm otherwise no acute pulmonary disease Discontinue prednisone Discontinue scheduled DuoNeb Albuterol nebs PRN Continue PO Levaquin for a total of 7 days (started 04/26) Lortab and Motrin PRN for pleuritic pain Wean O2 to maintain sats >92% Urinary tract infection Cultures revealed multidrug resistant E. coli, including resistance to ciprofloxacin Started on Bactrim DS (04/28) Afebrile Constipation Reba-Colace BID Milk of Mg and suppository PRN h/o CHF Euvolemic Monitor DVT prophylaxis Lovenox Discharge Planning Per psych Problem Qualifiers (1) Right lower lobe pneumonia: Qualified Codes: J18.1 - Lobar pneumonia, unspecified organism (2) UTI (urinary tract infection): Qualified Codes: N30.00 - Acute cystitis without hematuria Estelle Snow MD Apr 30, 2017 10:59
[2017-04-30] MEDS ORDERED: MAGNESIUM HYDROXIDE SUSP 30 ML CUP PO PRN (11:00)
[2017-04-30] MEDS ORDERED: BISACODYL 10 MG SUPP RECTAL PRN (11:00)
[2017-04-30] MEDS: ENOXAPARIN SODIUM 40 MG/0.4 ML SYRINGE SQ SCH (15:00)
[2017-04-30 18:07] VITALS: BP 110/53; PULSE 62; RESP 16; TEMP 99.1; O2SAT 97
[2017-04-30] MEDS: DOCUSATE SODIUM 50 MG/SENNA 8.6 MG TAB PO SCH (21:47)
[2017-04-30] MEDS: traZODone HCL 100 MG TAB PO SCH (21:48)
[2017-05-01] MEDS: LORazepam 1 MG TAB PO SCH ×3 (02:00→17:28)
[2017-05-01] MEDS: IBUPROFEN 400 MG TAB PO SCH ×4 (02:00→23:20)
[2017-05-01] MEDS: ACETAMINOPHEN/HYDROcodone 325 MG/5 MG TAB PO PRN ×5 (03:20→21:30)
[2017-05-01] MEDS: hydrOXYzine HCL 25 MG TAB PO PRN (04:21)
[2017-05-01 05:05] VITALS: BP 119/59; PULSE 61; RESP 16; TEMP 97.9; O2SAT 95
[2017-05-01] MEDS: NICOTINE 7 MG/24 HR PATCH T-DERMAL SCH (08:27)
[2017-05-01] MEDS: DOCUSATE SODIUM 50 MG/SENNA 8.6 MG TAB PO SCH ×2 (08:27→20:29)
[2017-05-01] MEDS: LEVOFLOXACIN 750 MG TAB PO SCH (08:27)
[2017-05-01] MEDS: THEOPHYLLINE ER 12 HR 300 MG TABCR PO SCH ×2 (08:28→20:30)
[2017-05-01] MEDS: SULFAMETHOXAZOLE-TRIMETHOPRIM DS 800-160 MG TAB PO SCH ×2 (08:28→20:30)
[2017-05-01] MEDS: CITALOPRAM HYDROBROMIDE 40 MG TAB PO SCH (08:28)
[2017-05-01] MEDS: BUDESONIDE-FORMOTEROL 160/4.5 MCG INHALER INH SCH ×2 (08:30→21:00)
[2017-05-01] MEDS: ENOXAPARIN SODIUM 40 MG/0.4 ML SYRINGE SQ SCH (15:00)
--- NOTE | 2017-05-01 16:31 | HHI.PYPN ---
Subjective Remarks Reviewed electronic medical record, labs, discuss case with staff. Follow-up evaluation occurred in patient's room with nurse present. Patient sitting on bed, awake, alert, and oriented 4. Patient reports that she has been sleeping well and has had a good appetite. When asked how she feels today she states " it is this is the most positive felt since I got here". She denies suicidal ideation and states the last time it occurred was Monday. She denies homicidal ideation, auditory or visual hallucinations. No indication that the patient's delusional. She reports that she would like to get an assisted living facility. Patient's counselor is working on that. Mental Status Examination Appearance: Disheveled Consciousness: Alert Orientation: x4 Speech: Unremarkable Language: Adequate Fund of Knowledge: Inadequate Attention and Concentration: Adequate Memory: Unremarkable Mood: Appropriate Affect: Sad, Anxious Thought Process & Associations: Intact, Logical, Goal directed, Linear Thought Content: Appropriate Hallucination Type: None Delusion Type: Paranoid Suicidal Ideation: No Suicidal Plan: No Suicidal Intention: No Homicidal Ideation: No Homicidal Plan: No Homicidal Intention: No Insight: Adequate Judgment: Adequate Results Labs Date/Time Source Procedure Growth Status 04/25/17 15:10 Urine Catheterized Urine Urine Culture - Final Escherichia Coli Multi-Drug Resistant Complete Vitals/IOs Vital Signs Date Time Temp Pulse Resp B/P (MAP) Pulse Ox O2 Delivery O2 Flow Rate FiO2 05/01/17 05:05 97.9 61 16 119/59 (79) 95 04/30/17 20:00 Room Air 04/30/17 09:31 2.00 Intake and Output 05/01/17 05/01/17 05/02/17 08:00 16:00 00:00 Intake Total 360 ml 240 ml Balance 360 ml 240 ml Assessment & Plan Problem List: (1) Adjustment disorder with depressed mood ICD Codes: F43.21 - Adjustment disorder with depressed mood (2) Alcohol use disorder ICD Codes: F10.99 - Alcohol use, unspecified with unspecified alcohol-induced disorder Assessment & Plan Estimated LOS: Patient reports that her condition is much improved. Discharge planning is in process. Patient will likely be discharged within the next few days. Justification for Cont. Inpt. Pending a safe discharge plan. Alisha Pandya May 01, 2017 16:31
--- NOTE | 2017-05-01 16:48 | HHI.PR ---
Subjective Remarks Patient seen today around noon. Says she is feeling all right. Reports constipation is resolved. She denies any chest pain or shortness of breath. Objective Vital Signs Date Time Temp Pulse Resp B/P (MAP) Pulse Ox O2 Delivery O2 Flow Rate FiO2 05/01/17 05:05 97.9 61 16 119/59 (79) 95 05/01/17 04:20 20 05/01/17 03:15 18 04/30/17 20:00 Room Air 04/30/17 18:07 99.1 62 16 110/53 (72) 97 I/O 04/30/17 04/30/17 04/30/17 05/01/17 05/01/17 05/01/17 07:00 15:00 23:00 07:00 15:00 23:00 Intake Total 240 ml 960 ml 720 ml 360 ml 240 ml Balance 240 ml 960 ml 720 ml 360 ml 240 ml Intake Oral 240 ml 960 ml 720 ml 360 ml 240 ml # Voids 3 4 1 2 # Bowel Movements 0 2 Objective Remarks GENERAL: Patient sitting up in bed. Appears comfortable. SKIN: Warm and dry. HEAD: Normocephalic. EYES: No scleral icterus. No injection or drainage. NECK: Supple, trachea midline. No JVD. CARDIOVASCULAR: Regular rate and rhythm without murmurs, gallops, or rubs. RESPIRATORY: Breath sounds equal bilaterally. No accessory muscle use. GASTROINTESTINAL: Abdomen soft, non-tender, nondistended. MUSCULOSKELETAL: No cyanosis, or edema. BACK: Nontender without obvious deformity. No CVA tenderness. A/P Assessment and Plan 71 year old female Diaz acted for depression, alcohol abuse, and suicidal ideations and found to have RLL PNA. //Depression with suicidal ideation Treatment per psychiatry //Pneumonia with COPD exacerbation Clinically improved with clear lungs and no wheezing or crackles Repeat CXR with small bowel and colon in eventration of R diaphragm otherwise no acute pulmonary disease Discontinue prednisone Discontinue scheduled DuoNeb Albuterol nebs PRN Continue PO Levaquin for a total of 7 days (started 04/26) Lortab and Motrin PRN for pleuritic pain Off oxygen. = Discontinue Levaquin 05/03. //Urinary tract infection Cultures revealed multidrug resistant E. coli, including resistance to ciprofloxacin Started on Bactrim DS (04/28) Afebrile = Discontinue Bactrim 05/08. //Constipation Reba-Colace BID Milk of Mg and suppository PRN = Resolved. Continue to monitor. //Hypokalemia previously. Recheck renal profile tomorrow. //h/o CHF Euvolemic Monitor //DVT prophylaxis Lovenox Discharge Planning Per psych Discharge Planning We will continue to follow Geraldo Bailey MD May 01, 2017 16:47
[2017-05-01 17:37] VITALS: BP 114/52; PULSE 80; RESP 18; TEMP 98.8; O2SAT 99
[2017-05-01] MEDS: traZODone HCL 100 MG TAB PO SCH (21:30)
[2017-05-02] MEDS: ACETAMINOPHEN/HYDROcodone 325 MG/5 MG TAB PO PRN ×5 (01:41→20:09)
[2017-05-02] MEDS: ALBUTEROL SULFATE 90 MCG/ACT HFA 8 GM INHALER INH PRN ×3 (01:43→17:05)
[2017-05-02] MEDS: LORazepam 1 MG TAB PO SCH ×3 (02:08→17:30)
[2017-05-02 05:56] VITALS: BP 117/54; PULSE 65; RESP 18; TEMP 98.4
[2017-05-02] MEDS: THEOPHYLLINE ER 12 HR 300 MG TABCR PO SCH ×2 (08:33→20:08)
[2017-05-02] MEDS: SULFAMETHOXAZOLE-TRIMETHOPRIM DS 800-160 MG TAB PO SCH ×2 (08:33→20:08)
[2017-05-02] MEDS: CITALOPRAM HYDROBROMIDE 40 MG TAB PO SCH (08:33)
[2017-05-02] MEDS: LEVOFLOXACIN 750 MG TAB PO SCH (08:33)
[2017-05-02] MEDS: DOCUSATE SODIUM 50 MG/SENNA 8.6 MG TAB PO SCH ×2 (08:33→20:09)
[2017-05-02] MEDS: NICOTINE 7 MG/24 HR PATCH T-DERMAL SCH (08:34)
[2017-05-02] MEDS: BUDESONIDE-FORMOTEROL 160/4.5 MCG INHALER INH SCH ×2 (08:35→20:09)
[2017-05-02 09:22] LABS: ALBUMIN 3.6 GM/DL (3.4-5.0); BICARBONATE 25.3 MEQ/L (21.0-32.0); CALCIUM 8.2 MG/DL (8.5-10.1); CREATININE 0.85 MG/DL (0.50-1.00); MAGNESIUM 2.3 MG/DL (1.5-2.5)
[2017-05-02 09:25] LABS: PHOSPHORUS 4.2 MG/DL (2.5-4.9)
[2017-05-02] MEDS: IBUPROFEN 400 MG TAB PO SCH ×2 (09:47→17:30)
--- NOTE | 2017-05-02 13:37 | HHI.PYPN ---
Subjective Remarks Reviewed electronic medical record and discussed patient with staff. Follow-up conducted in patient's room. Patient reports feeling "better than I have in a long time". She advises that she slept well and her appetite has been good. She denies SI, HI, visual and auditory hallucinations and does not appear delusional. The counselor advises that Timmy is coming to see patient today about a possible placement. Mental Status Examination Appearance: Appropriate Consciousness: Alert Orientation: x4 Motor Activity: Normal gait Speech: Unremarkable Language: Adequate Fund of Knowledge: Adequate Attention and Concentration: Adequate Memory: Unremarkable Mood: Appropriate Affect: Anxious (about future) Thought Process & Associations: Intact, Logical, Goal directed, Linear Thought Content: Appropriate Hallucination Type: None Delusion Type: None Suicidal Ideation: No Suicidal Plan: No Suicidal Intention: No Homicidal Ideation: No Homicidal Plan: No Homicidal Intention: No Insight: Adequate Judgment: Adequate Results Labs Test 05/02/17 07:43 Blood Urea Nitrogen 20 MG/DL Creatinine 0.85 MG/DL Random Glucose 70 MG/DL Albumin 3.6 GM/DL Calcium Level 8.2 MG/DL Phosphorus Level 4.2 MG/DL Magnesium Level 2.3 MG/DL Sodium Level 135 MEQ/L Potassium Level 4.6 MEQ/L Chloride Level 102 MEQ/L Carbon Dioxide Level 25.3 MEQ/L Anion Gap 8 MEQ/L Estimat Glomerular Filtration Rate 66 ML/MIN Date/Time Source Procedure Growth Status 04/25/17 15:10 Urine Catheterized Urine Urine Culture - Final Escherichia Coli Multi-Drug Resistant Complete Vitals/IOs Vital Signs Date Time Temp Pulse Resp B/P (MAP) Pulse Ox O2 Delivery O2 Flow Rate FiO2 05/02/17 05:56 98.4 65 18 117/54 (75) 05/01/17 17:37 99 04/30/17 20:00 Room Air 04/30/17 09:31 2.00 Assessment & Plan Problem List: (1) Adjustment disorder with depressed mood ICD Codes: F43.21 - Adjustment disorder with depressed mood (2) Alcohol use disorder ICD Codes: F10.99 - Alcohol use, unspecified with unspecified alcohol-induced disorder Assessment & Plan Estimated LOS: Patient reports feeling much better. Discharge planning is occurring. Patient will likely be discharged tomorrow. Justification for Cont. Inpt. Discharge planning being finalized. Alisha Pandya May 02, 2017 13:37
[2017-05-02] MEDS: ENOXAPARIN SODIUM 40 MG/0.4 ML SYRINGE SQ SCH (15:23)
[2017-05-02 18:04] VITALS: BP 100/46; PULSE 72; RESP 18; TEMP 98.4; O2SAT 98
[2017-05-02] MEDS: traZODone HCL 100 MG TAB PO SCH (20:08)
[2017-05-03] MEDS: LORazepam 1 MG TAB PO SCH ×2 (02:14→09:39)
[2017-05-03] MEDS: IBUPROFEN 400 MG TAB PO SCH ×2 (02:15→09:40)
[2017-05-03 05:31] VITALS: BP 105/68; PULSE 61; RESP 16; TEMP 98.2; O2SAT 96
[2017-05-03] MEDS: ACETAMINOPHEN/HYDROcodone 325 MG/5 MG TAB PO PRN ×2 (06:11→10:26)
[2017-05-03 07:14] VITALS: RESP 18
[2017-05-03] MEDS ORDERED: REST30CA PO (08:56)
[2017-05-03] MEDS ORDERED: TRAZ100T10 PO (08:56)
[2017-05-03] MEDS ORDERED: CITA40TA4 PO (08:56)
[2017-05-03] MEDS ORDERED: VIST50CA PO (08:56)
[2017-05-03] MEDS ORDERED: LORA0.5T PO (08:56)
[2017-05-03] MEDS ORDERED: SULF1TAB23 PO (09:13)
[2017-05-03] MEDS ORDERED: MIRA3350 PO (09:13)
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
[2017-05-03] MEDS: CITALOPRAM HYDROBROMIDE 40 MG TAB PO SCH (09:37)
[2017-05-03] MEDS: SULFAMETHOXAZOLE-TRIMETHOPRIM DS 800-160 MG TAB PO SCH (09:38)
[2017-05-03] MEDS: DOCUSATE SODIUM 50 MG/SENNA 8.6 MG TAB PO SCH (09:38)
[2017-05-03] MEDS: THEOPHYLLINE ER 12 HR 300 MG TABCR PO SCH (09:38)
[2017-05-03] MEDS: NICOTINE 7 MG/24 HR PATCH T-DERMAL SCH (09:39)
[2017-05-03] MEDS: BUDESONIDE-FORMOTEROL 160/4.5 MCG INHALER INH SCH (09:42)
== END 2017-05-03 11:35 | DRG 881 ==
LOC: NEPD 14:05 → NEDA 18:35 → H4EA 21:00 → H260 05-01 12:35
PROVIDERS: ADMIT Student in an Organized Health Care Education/Training Program; ATTEND Student in an Organized Health Care Education/Training Program
DX: F43.21 Adjustment disorder with depressed mood (principal); J18.9 Pneumonia, unspecified organism; J44.0 Chronic obstructive pulmonary disease with (acute) lower respiratory infection; F10.99 Alcohol use, unspecified with unspecified alcohol-induced disorder; Y90.4 Blood alcohol level of 80-99 mg/100 ml; J44.1 Chronic obstructive pulmonary disease with (acute) exacerbation; N39.0 Urinary tract infection, site not specified; B96.20 Unspecified Escherichia coli [E. coli] as the cause of diseases classified elsewhere; Z16.24 Resistance to multiple antibiotics; Z16.29 Resistance to other single specified antibiotic; F17.210 Nicotine dependence, cigarettes, uncomplicated; Z59.0 Homelessness; M19.90 Unspecified osteoarthritis, unspecified site; E87.6 Hypokalemia; K59.00 Constipation, unspecified; Z87.01 Personal history of pneumonia (recurrent); Z96.643 Presence of artificial hip joint, bilateral
CPT/HCPCS: 71045; 71046; 80053; 80061; 80069; 80307; 81001; 83036; 83735; 84443; 85025; 87077; 87086; 87186; 94640; 94664; 96365; 96366; 96367; 96368; 96375; J0696; J1650; J1956; J2060; J2405; J2920; J2930; J3411; J3480; J7030; J7512; P9612